=== PATIENT | female | born 1985 | race Caucasian/White ===

== ENCOUNTER 2020-05-18 15:47 | Emergency (ER) | payer BC ==
[2020-05-18] MEDS ORDERED: Ketorolac 10 MG Tab PO ONE (17:04)
--- NOTE | 2020-05-18 17:07 | EDM.PDOC ---
ED HPI GENERAL MEDICAL PROBLEM - General Chief Complaint: Lower Extremity Injury/Pain Stated Complaint: foot pain Time Seen by Provider: 05/18/20 16:19 Source of Information: Reports: Patient History Limitations: Reports: No Limitations - History of Present Illness INITIAL COMMENTS - FREE TEXT/NARRATIVE: Patient has pain lateral left foot after jumping off dock and landing in water that was shallower than expected. Twisted ankle during landing. Increasing pain since then. Initially able to walk on it but now greater discomfort. Denies other injuries. No numbness/tingling. Left Foot Pain Score (Numeric/FACES): 7 - Related Data Allergies Allergy/AdvReac Type Severity Reaction Status Date / Time No Known Allergies Allergy Verified 05/18/20 16:05 Home Meds: Home Meds Loratadine [Claritin] 10 mg PO DAILY PRN 05/18/20 [History] RX: Sertraline [Zoloft] 25 mg PO DAILY 05/18/20 [History] Review of Systems - Review of Systems Review Of Systems: See Below Musculoskeletal: Reports: Foot Pain (left) Skin: Reports: No Symptoms Neurological: Reports: No Symptoms ED EXAM, GENERAL - Physical Exam Exam: See Below Exam Limited By: No Limitations General Appearance: Alert, WD/WN, No Apparent Distress Eye Exam: Bilateral Eye: EOMI, PERRL Ears: Hearing Grossly Normal Head: Atraumatic, Normocephalic Respiratory/Chest: No Respiratory Distress Extremities: Limited Range of Motion (some discomfort moving left foot with ROM), Other (Left foot is point tender with palpation just distal to lateral maleolus/mild swelling noted. Reproduce's pain complaint. No other tenderness noted around ankles/rest of foot) Neurological: Alert, Oriented, No Motor/Sensory Deficits Psychiatric: Normal Affect, Normal Mood Skin Exam: Warm, Dry, Intact, Normal Color. No: Ecchymosis, Erythema, Pallor, Wound/Incision Course - Vital Signs Last Recorded V/S: Last Vital Signs Temp 37.2 C 05/18/20 15:56 Pulse 90 05/18/20 15:56 Resp 16 05/18/20 15:56 BP 133/73 05/18/20 15:56 Pulse Ox 98 05/18/20 15:56 - Orders/Labs/Meds Orders: Active Orders 24 hr Category Date Time Status Foot Comp Min 3V Lt [CR] Stat Exams 05/18/20 16:03 Taken Meds: Medications Discontinued Medications Generic Name Dose Route Start Last Admin Trade Name Rae PRN Reason Stop Dose Admin Ketorolac Tromethamine 10 mg 05/18/20 17:04 05/18/20 17:11 Toradol PO 05/18/20 17:05 10 mg ONETIME ONE Administration - Re-Assessments/Exams Free Text/Narrative Re-Assessment/Exam: Xray performed of left foot. No obvious fracture/avulsion noted. Pending Radiology review. Crutches given to patient. Precautions reviewed. Toradol PO for pain. To advance activity as tolerated. To follow up for recheck if no significant improvement noted within 3-4 days. Departure - Departure Time of Disposition: 17:05 Disposition: Home, Self-Care 01 Clinical Impression: Left ankle sprain Qualifiers: Encounter type: initial encounter Involved ligament of ankle: unspecified ligament Qualified Code(s): S93.402A - Sprain of unspecified ligament of left ankle, initial encounter - Discharge Information *PRESCRIPTION DRUG MONITORING PROGRAM REVIEWED*: Not Applicable *COPY OF PRESCRIPTION DRUG MONITORING REPORT IN PATIENT MANUEL: Not Applicable Instructions: Crutch Use, Adult, [id number], How to Use a Stirrup Ankle Brace, [id number], Ankle Sprain, [id number] Referrals: Melisa Harris NP [Primary Care Provider] - Forms: ED Department Discharge Additional Instructions: Rest/ice/avoid weightbearing. Elevate for comfort. Get rechecked if you do not notice significant improvement in pain within 3-4 days. Tylenol/Ibuprofen for pain as needed. Recommend using stirrup style ankle brace for added support for next 4 weeks whenever you are active to help avoid re-injury Sepsis Event Note (ED) - Evaluation Sepsis Screening Result: No Definite Risk - Focused Exam Vital Signs: Vital Signs Temp Pulse Resp BP Pulse Ox 05/18/20 15:56 37.2 C 90 16 133/73 98 - My Orders Last 24 Hours: My Active Orders 05/18/20 16:03 Foot Comp Min 3V Lt [CR] Stat - Assessment/Plan Last 24 Hours: My Active Orders 05/18/20 16:03 Foot Comp Min 3V Lt [CR] Stat
== END 2020-05-18 17:28 | disposition home or self-care (01) ==
LOC: LL.ED 15:47
DX: S93.402A Sprain of unspecified ligament of left ankle, initial encounter (principal); Z79.899 Other long term (current) drug therapy; X50.9XXA Other and unspecified overexertion or strenuous movements or postures, initial encounter
CPT/HCPCS: 73630-LT; 99282; 99283-25; A9270-GY

== ENCOUNTER 2022-10-28 14:52 | Emergency (ER) | payer BC ==
[2022-10-28] MEDS ORDERED: Sodium Chloride 0.9% 1,000 ML IV ONE ×2 (15:03→17:40)
[2022-10-28] MEDS ORDERED: Ondansetron 4 MG/2 ML SDV IVPUSH ONE (15:03)
[2022-10-28] MEDS ORDERED: Sodium Chloride 0.9% 10 ML Syringe FLUSH PRN (15:04)
[2022-10-28 15:46] LABS: ANION GAP 11.9 meq/L (7-15); CHLORIDE,CL 106 mmol/L (98-107); SODIUM,NA 141 mmol/L (136-145)
[2022-10-28 15:56] LABS: CORONAVIRUS COVID-19 NAA NEGATIVE (NEGATIVE); RESPIRATORY SYNCYTIAL VIR NAA NEGATIVE (NEGATIVE)
[2022-10-28 16:12] LABS: ESTIMATED GFR 81 mL/min (>=60)
== END 2022-10-28 19:22 | disposition home or self-care (01) ==
LOC: LL.ED 14:52
DX: J10.1 Influenza due to other identified influenza virus with other respiratory manifestations (principal); E86.0 Dehydration; Z20.822 Contact with and (suspected) exposure to COVID-19
CPT/HCPCS: 0241U; 36415; 80053; 81003; 85025; 87081; 87430; 96361; 96374; 99283; 99284-25; J2405; J7030

== ENCOUNTER 2024-04-04 16:08 | Emergency (ER) | payer BC ==
[2024-04-04] MEDS: Sodium Chloride 0.9% 10 ML Syringe FLUSH PRN (16:21)
[2024-04-04] MEDS: Adenosine 6 MG/2 ML SDV IVPUSH ONE ×2 (16:21→16:26)
[2024-04-04 16:23] LABS: BASOPHILS ABSOLUTE AUTO 0.06 K/uL (0.00-0.20); BASOPHILS PERCENT AUTO 0.4 % (0.0-2.0); EOSINOPHILS ABSOLUTE AUTO 0.27 K/uL (0.00-0.50); EOSINOPHILS PERCENT AUTO 1.8 % (0.0-5.0); HEMATOCRIT 44.1 % (34.0-46.0); LYMPHOCYTES ABSOLUTE AUTO 6.02 K/uL (0.50-3.50); LYMPHOCYTES PERCENT AUTO 40.5 % (10.0-50.0); MEAN CORPUSCULAR HEMOGLOBIN 29.4 pg (28.2-33.3); MEAN CORPUSCULAR VOLUME 86.5 fL (84.0-98.0); MONOCYTES ABSOLUTE AUTO 0.94 K/uL (0.00-1.00); MONOCYTES PERCENT AUTO 6.3 % (2.0-14.0); NEUTROPHILS ABSOLUTE AUTO 7.59 K/uL (1.40-7.00); PLATELET COUNT,PLT 523 K/uL (150-350); RED CELL DISTRIBUTION WIDTH 14.3 % (11.2-14.1); WHITE BLOOD CELL COUNT,WBC 14.9 K/uL (4.0-10.2)
[2024-04-04 16:43] LABS: ANION GAP 13.5 meq/L (7-15); BILIRUBIN TOTAL 0.3 mg/dL (0.2-1.0); CALCIUM 9.3 mg/dL (8.5-10.1); CARBON DIOXIDE,CO2 22.5 mmol/L (21.0-32.0); CREATININE 0.94 mg/dL (0.51-1.17); EST CRCL DRUG DOSING (CG) 73.73 mL/min; POTASSIUM,K 4.6 mmol/L (3.5-5.1); PROTEIN TOTAL,TP 8.1 g/dL (6.4-8.2); PROTHROMBIN TIME 9.6 SEC (9.0-11.1)
[2024-04-04] MEDS: Diltiazem 25 MG/5 ML SDV IVPUSH ONE ×2 (16:44→17:26)
[2024-04-04] MEDS: Sodium Chloride 0.9% 500 ML IV SCH (16:57)
[2024-04-04] MEDS: Adenosine 6 MG/2 ML SDV ONE ×2 (18:18→18:20)
[2024-04-04] MEDS: Diltiazem 25 MG/5 ML SDV ONE (18:20)
[2024-04-04 19:43] VITALS: BP 135/115; PULSE 112
== END 2024-04-04 19:30 ==
LOC: LL.ED 16:08 → SUPCPDRO 16:08 → LL.ED 19:30
DX: I10 Essential (primary) hypertension (principal); R00.0 Tachycardia, unspecified; R79.89 Other specified abnormal findings of blood chemistry; Z79.899 Other long term (current) drug therapy
CPT/HCPCS: 36415; 71045; 80053; 84484; 85025; 85379; 85610; 93005; 96361; 96374; 96375; 96376; 99285-25; J0153; J3490; J7040